=== PATIENT | female | born 1970 | race Two or more races ===

== ENCOUNTER 2018-05-06 10:41 | Emergency (ER) | payer BC ==
[2018-05-06] MEDS ORDERED: DIAZEPAM 2 MG TABLET PO ONE (11:36)
[2018-05-06] MEDS ORDERED: ACETAMINOPHEN 325 MG TABLET PO ONE (11:37)
--- NOTE | 2018-05-06 11:38 | ER Document Report ---
ED Medical Screen (RME) - General Chief Complaint: High Blood Pressure Stated Complaint: BLOOD PRESSURE ISSUES Time Seen by Provider: 05/06/18 11:24 Mode of Arrival: Ambulatory Information source: Patient TRAVEL OUTSIDE OF THE [place] IN LAST 30 DAYS: No - HPI Patient complains to provider of: High blood pressure Onset: Other - This is a 48-year-old female who presents for evaluation of high blood pressure. She had some tinnitus last night as well as headache briefly. She does have a history of tinnitus in the past as well as headache. Today she denies any serious headaches that she is got some tightness in the shoulders and the back of her neck. Denies any recent fevers, chills, shortness of breath, dizziness diaphoresis lightheadedness abdominal pain diarrhea constipation dysuria. She does have a history of breast cancer in the past for which she is undergone a curative mastectomy and has resulting lymphedema along the right arm. - Related Data Allergies/Adverse Reactions: No Known Allergies Allergy (Verified 05/06/18 10:48) Past Medical History - General Information source: Patient - Social History Cigarette use (# per day): No Chew tobacco use (# tins/day): No Frequency of alcohol use: None Drug Abuse: None Renal/ Medical History: Denies: Hx Peritoneal Dialysis Review of Systems - Review of Systems -: Yes All other systems reviewed and negative Physical Exam - Vital signs Vitals: Temp Pulse Resp BP Pulse Ox 98.6 F 91 18 160/89 H 98 05/06/18 10:49 05/06/18 10:49 05/06/18 10:49 05/06/18 10:49 05/06/18 10:49 Interpretation: Normal - General General appearance: Appears well, Alert - HEENT Head: Normocephalic, Atraumatic Eyes: Normal Pupils: PERRL - Respiratory Respiratory status: No respiratory distress Chest status: Nontender Breath sounds: Normal Chest palpation: Normal - Cardiovascular Rhythm: Regular Heart sounds: Normal auscultation Murmur: No - Abdominal Inspection: Normal Distension: No distension Bowel sounds: Normal Tenderness: Nontender Organomegaly: No organomegaly - Back Back: Normal, Nontender - Extremities General upper extremity: Normal inspection, Nontender, Edema - +1 pitting edema in the right upper extremity, Normal color, Normal ROM, Normal temperature General lower extremity: Normal inspection, Nontender, Normal color, Normal ROM, Normal temperature, Normal weight bearing. No: Julian's sign - Neurological Neuro grossly intact: Yes Cognition: Normal Orientation: AAOx4 Faustino Coma Scale Eye Opening: Spontaneous Faustino Coma Scale Verbal: Oriented [place] Coma Scale Motor: Obeys Commands Faustino Coma Scale Total: 15 Speech: Normal Motor strength normal: LUE, RUE, LLE, RLE Sensory: Normal - Psychological Associated symptoms: Normal affect, Normal mood - Skin Skin Temperature: Warm Skin Moisture: Dry Skin Color: Normal Course - Re-evaluation Re-evalutation: 05/06/18 18:14 40-year-old female presents for evaluation of she also notes that she has had multiple episodes of hypertension in the past however she has not been treated for these. She is lost care as she has recently moved from far away. Nothing seemed to make this better, nothing seems to make it worse. She is not take anything to try and help with this. Do believe that this patient likely is suffering from a tension headache her hypertension is of little importance. Current plan will be for this patient to undergo treatment for tension headache with Valium. She will also undergo treatment with hydrochlorothiazide for possible hypertension developing. We will plan for this patient undergo discharge with return precautions and follow-up. She agrees with current course of action Ambulatory at the time of discharge with treatment of her tension headache as well as her hypertension. - Vital Signs Vital signs: Temp Pulse Resp BP Pulse Ox 98.6 F 91 18 160/89 H 98 05/06/18 10:49 05/06/18 10:49 05/06/18 10:49 05/06/18 10:49 05/06/18 10:49 Doctor's Discharge - Discharge Clinical Impression: Muscle strain Hypertension Qualifiers: Hypertension type: unspecified Qualified Code(s): I10 - Essential (primary) hyp ertension Headache Qualifiers: Headache type: unspecified Headache chronicity pattern: unspecified pattern Int ractability: not intractable Qualified Code(s): R51 - Headache Condition: Good Disposition: HOME, SELF-CARE Instructions: High Blood Pressure, Requiring Treatment ([facility]), Hydrochlorothiazide ([facility]), Tension Headache ([facility]) Additional Instructions: You were seen today in the emergency department for your headache. I think that your headache is a tension headache. You have been given a medication to help as a muscle relaxer only as needed for the tension. You have also been given a medicine for your blood pressure. Take the medicine for your blood pressure every day. Make sure you follow-up with a primary physician in the next 2 weeks for a blood pressure recheck. Return in case you have numbness or weakness, your headache worsens, or you feel worse as it could be a more serious condition. Prescriptions: Diazepam [Valium 2 mg Tablet] 2 mg PO Q12H PRN #12 tablet PRN Reason: Hydrochlorothiazide [Hydrodiuril 12.5 mg Tablet] 12.5 mg PO QAM #30 capsule Forms: Elevated Blood Pressure
[2018-05-06 13:11] VITALS: BP 129/82
== END 2018-05-06 13:04 | disposition home or self-care (01) ==
LOC: ER 10:41
DX: G44.209 Tension-type headache, unspecified, not intractable (principal); I10 Essential (primary) hypertension; T14.8XXA Other injury of unspecified body region, initial encounter; X58.XXXA Exposure to other specified factors, initial encounter; I97.2 Postmastectomy lymphedema syndrome; Z85.3 Personal history of malignant neoplasm of breast
CPT/HCPCS: 99283; J3490